=== PATIENT | female | born 1970 | race Caucasian/White ===

== ENCOUNTER 2018-04-25 01:57 | Emergency (ER) | payer BC, SELFPAY ==
[2018-04-25 01:57] VITALS: BP 148/83; PULSE 77; RESP 16; TEMP 36.4; O2SAT 96; BMI 29.2
--- NOTE | 2018-04-25 02:48 | RAD_ITS ---
STUDY: X-RAY CHEST REASON FOR EXAM: Female, 48 years old. REPORTS FALLING DOWN SEVERAL WOODEN STEPS STRIKING MID BACK. DENIES LOC, BUT PAIN BETWEEN SHOULDER BLADES. TECHNIQUE: Frontal and lateral views of the chest. COMPARISON: None. FINDINGS: The lungs are clear and expanded. There is no demonstrated pleural abnormality. Normal size heart. Normal mediastinum and rebecca. Normal visualized pulmonary arteries. Normal visualized aortic arch and descending thoracic aorta. Normal visualized thoracic spine. Normal visualized ribs, clavicles, and shoulders. There is no demonstrated abnormality of the visualized soft tissue structures of the upper abdomen. RAD/Chest PA and Lateral IMPRESSION: Normal x-ray examination of the chest. Electronically Signed: Yves Atkinson MD at 3:47 EST Tel , Service support ,
--- NOTE | 2018-04-25 02:48 | RAD_ITS ---
STUDY: X-RAY - THORACIC SPINE REASON FOR EXAM: Female, 48 years old. Patient fell TECHNIQUE: 2 view(s) of the thoracic spine were obtained. COMPARISON: None. FINDINGS: Normal kyphosis of the thoracic spine. There is no substantial scoliosis. Normal thoracic vertebrae and endplates. Normal disc space heights. The soft tissue structures are unremarkable. RAD/Thoracic Spine 3 Views IMPRESSION: Normal x-ray examination of the thoracic spine. No fractures Electronically Signed: Timi Valenzuela MD at 4:03 EST Tel , Service support ,
--- NOTE | 2018-04-25 04:20 | ED.DCSUM_ITS ---
- ER Visit Summary Date of Service: 04/25/18 Chief Complaint: Back pain History of Present Illness: The patient is a 48 F who presents with back pain. About 1-2 hours before presentation she fell down the steps. Is walking down the steps when she fell backwards. She estimates she fell down about 6 steps. She hit her back and complains of mid upper back pain. No chest pain no abdominal pain. She denies head injury. No loss of consciousness or amnesia. No headache or vomiting. She denies any extremity injuries. He did take an ibuprofen prior to arrival here. Physical Examination: Afebrile vitals unremarkable Moist mucous membranes No C-spine tenderness Heart regular rate and rhythm Lungs clear, equal breath sounds bilaterally Abdomen soft nontender nondistended Patient does have some midline thoracic spinal tenderness Active full range of motion x4 extremities without pain GCS of 15 with no focal or lateralizing neurological deficits Test Results: Two-view chest x-ray and thoracic x-rays are normal. Emergency Department Course and Treatment: Patient declined any analgesics here. X-rays negative as above. Patient advised on supportive care. She understands to return for new or worsening symptoms. She was discharged. Treatment Plan: [] Disposition: Discharge Impression: Back contusion This note was generated with [employer] dictation software. It may contain incorrect words, spelling, and punctuation that were not noted in review of the chart prior to signing ED Disposition - Plan for ED Patient: Referrals: Floyd Sparks III, MD [Primary Care Provider] -
--- NOTE | 2018-04-25 04:20 | ED.DEP ---
ED Disposition - Plan for ED Patient: Instructions: ED Contusion Back Referrals: Floyd Sparks III, MD [Primary Care Provider] -
== END 2018-04-25 04:35 | disposition home or self-care (01) ==
PROVIDERS: Emergency Provider Emergency Medicine; Family Provider Family Medicine; PCP Family Medicine
DX: S20.229A Contusion of unspecified back wall of thorax, initial encounter (principal); Z79.899 Other long term (current) drug therapy; W10.9XXA Fall (on) (from) unspecified stairs and steps, initial encounter; Y93.01 Activity, walking, marching and hiking; Y92.89 Other specified places as the place of occurrence of the external cause; Y99.8 Other external cause status
CPT/HCPCS: 71046; 72072; 99282